=== PATIENT | female | born 1970 | race Caucasian/White ===

== ENCOUNTER 2016-11-10 21:13 | Emergency (ER) | payer OTHER ==
[2016-11-10 21:28] VITALS: RESP 16; TEMP 98.2
--- NOTE | 2016-11-10 21:34 | EDPHY ---
H & P Stated Complaint: x today - nausea, constipated, "intestines inflamed", abd pain , woozy Time Seen by Provider: 11/10/16 21:34 - Personal History LMP (Females 10-55): 1-7 Days Ago Current Tetanus/Diphtheria Vaccine: Unsure Current Tetanus Diphtheria and Acellular Pertussis (TDAP): Unsure - Medical/Surgical History Hx Asthma: No Hx Chronic Respiratory Disease: No Hx Diabetes: Yes Hx Cardiac Disease: No Hx Renal Disease: No Hx Cirrhosis: No Hx Alcoholism: No Hx HIV/AIDS: No Hx Splenectomy or Spleen Trauma: No Other PMH: pmh- DM I, hypothyroid - Social History Smoking Status: Former smoker Constitutional: Initial Vital Signs Temperature (C) 36.8 C 11/10/16 21:23 Heart Rate 87 11/10/16 21:23 Respiratory Rate 16 11/10/16 21:23 Blood Pressure 107/60 11/10/16 21:23 O2 Sat (%) 94 11/10/16 21:23 O2 Delivery Mode Room Air Allergies/Adverse Reactions: No Known Allergies Allergy (Verified 11/10/16 21:23) Home Medications: Medication Instructions Recorded Insulin Regular, Human 10/22/09 Lantus 10/22/09 Medical Decision Making ED Course/Re-evaluation: CHIEF COMPLAINT: abdominal pain HISTORY OF PRESENT ILLNESS: The patient is a 46 y/o female, with a history of diabetes type I, complaining of diffuse "crampy" abdominal pain and nausea onset today. She was seen last year for similar symptoms and her workup was largely unremarkable. Today she states, "I feel like my intestines are inflamed. " She has associated bloating and pronounced nausea without vomiting. She denies dysuria, diarrhea, or constipation. She reports she is compliant with her insulin and tracking her BGL well. Her was recently ill with similar gastrointestinal symptoms. She denies history of abdominal surgeries. REVIEW OF SYSTEMS: A 10 point review of systems was performed and is negative with the exception of the elements mentioned in the history of present illness. PHYSICAL EXAM: HR, BP, O2 Sat, RR. Temp noted General Appearance: Alert, well hydrated, appropriate, and non-toxic appearing. Head: Atraumatic without scalp tenderness or obvious injury Eyes: Pupils equal, round, reactive to light and accommodation, EOMI, no trauma , no injection. Ears: Clear bilaterally, no perforation, normal landmarks Nose: Atraumatic, no rhinorrhea, clear. Throat: There is no erythema or exudates, no lesions, normal tonsils, mucus membranes moist. Neck: Supple, nontender, no lymphadenopathy. Respiratory: No retractions, no distress, no wheezes, and no accessory muscle use. Lungs are clear to auscultation bilaterally. Cardiovascular: Regular rate and rhythm, no murmurs, rubs, or gallops. Good capillary refill all extremities. Gastrointestinal: Abdomen is soft, nontender, non-distended, no masses, no rebound, no guarding, no peritoneal signs. Musculoskeletal: Normal active ROM of all extremities, atraumatic. Neurological: Alert, appropriate, and interactive. Nonfocal neuro exam. Skin: No rashes, good turgor, no nodules on palpation. Past medical history: type 1 diabetes Past surgical history: denies Family history: noncontributory Social history: . Nonsmoker. Patient of Dr. Narvaez's private clinic. Reviewed past medical records including ED visit 12/05/15 for similar symptoms. DIFFERENTIAL DIAGNOSIS: The differential diagnosis for the patient's abdominal pain included but was not limited to ovarian cyst, pelvic inflammatory disease, ovarian torsion, urinary tract infection, ectopic , cholecystitis, and appendicitis. MEDICAL DECISION MAKING: This is a 46 y/o female with a history of type I diabetes presenting with a 1- day history of diffuse, non-localized, and "crampy" abdominal pain. Her abdominal exam is benign, which makes me less suspicious of acute process requiring imaging. Plan for IV, labs including CBC, CHEM, lipase, UA, and LFTs, and symptom management. 4mg IV Zofran, 0.5mg IV Dilaudid, 30mg IV Toradol, and 2L IV NS administered. Plan to observe and reassess for symptom improvement. 2220: Patient care signed over to Dr. Goodwin pending symptom improvement. She will be discharged home with Zofran if her symptoms improve here with outpatient follow up as needed. - Data Points Laboratory Results: 11/10/16 11/10/16 11/10/16 22:05 22:05 21:39 WBC Pending RBC Pending Hgb Pending Hct Pending MCV Pending MCH Pending MCHC Pending RDW Pending Plt Count Pending MPV Pending Neut % (Auto) Pending Lymph % (Auto) Pending [place] % (Auto) Pending Eos % (Auto) Pending Baso % (Auto) Pending Nucleat RBC Rel Count Pending Absolute Neuts (auto) Pending Absolute Lymphs (auto) Pending Absolute Monos (auto) Pending Absolute Eos (auto) Pending Absolute Basos (auto) Pending Absolute Nucleated RBC Pending Immature Gran % Pending Immature Gran # Pending Sodium Pending Potassium Pending Chloride Pending Carbon Dioxide Pending Anion Gap Pending BUN Pending Creatinine Pending Estimated GFR Pending Glucose Pending Calcium Pending Total Bilirubin Pending Conjugated Bilirubin Pending Unconjugated Bilirubin Pending AST Pending ALT Pending Alkaline Phosphatase Pending Total Protein Pending Albumin Pending Lipase Pending Beta HCG, Qual Pending Departure - Departure Disposition: Home, Routine, Self-Care Clinical Impression: Abdominal pain Qualifiers: Abdominal location: generalized Qualified Code(s): R10.84 - Generalized abdominal pain Condition: Good Instructions: Abdominal Pain (ED) Additional Instructions: Increase fluid intake as tolerated. Use Zofran as prescribed if needed for nausea. Follow up with your primary care provider for symptoms unimproved over the next 2-3 days. Return to the ED for any worsening of condition. Referrals: Kalin Narvaez MD [Primary Care Provider] - As per Instructions Report Scribed for: Kalin Narvaez Report Scribed by: Jazlyn Lynn Date of Report: 11/10/16 Time of Report: 22:05
[2016-11-10] MEDS ORDERED: ONDANSETRON 4 MG/2 ML VIAL IVP ONE (21:38)
[2016-11-10] MEDS ORDERED: KETOROLAC 30 MG/1 ML SDV IVP ONE (21:38)
[2016-11-10] MEDS ORDERED: NS 1,000 ML IV ONE ×2 (21:38)
[2016-11-10] MEDS ORDERED: HYDROmorphONE/DILAUDID 1 MG/ML SYR IVP ONE (21:38)
[2016-11-10 22:18] LABS: % IMMATURE GRANULYOCYTES 0.3 % (0.0-1.1); ABSOLUTE IMMATURE GRANULOCYTES 0.03 10^3/uL (0.00-0.10); ADD DIFF? NO; ADD MORPH? NO; ADD SCAN? NO; ATYPICAL LYMPHOCYTE FLAG 10 (0-99); FRAGMENT RBC FLAG 0 (0-99); HEMATOCRIT 44.4 % (38.0-47.0); HEMOGLOBIN 15.2 g/dL (12.6-16.3); LEFT SHIFT FLG 20 (0-99); LIPEMIA HEMOLYSIS FLAG 90 (0-99); MEAN CELL HEMOGLOBIN 32.1 pg (27.9-34.1); MEAN CELL HEMOGLOBIN CONCENTR. 34.2 g/dL (32.4-36.7); MEAN CELL VOLUME 93.7 fL (81.5-99.8); PLATELET CLUMPS FLAG 0 (0-99); PLATELET COUNT 200 10^3/uL (150-400); RED BLOOD CELL COUNT 4.74 10^6/uL (4.18-5.33); RED CELL DISTRIBUTION WIDTH 12.1 % (11.5-15.2)
[2016-11-10 22:29] LABS: ALANINE AMINOTRANSFERASE 28 IU/L (9-52); ALBUMIN 4.3 g/dL (3.5-5.0); ALKALINE PHOSPHATASE 93 IU/L (38-126); ANION GAP 12 mEq/L (8-16); ASPARTATE AMINOTRANSFERASE 21 IU/L (14-46); BILIRUBIN,TOTAL 1.4 mg/dL (0.1-1.4); BILIRUBIN-CONJUGATED 0.3 mg/dL (0.0-0.5); BILIRUBIN-UNCONJUGATED 1.1 mg/dL (0.0-1.1); CALCIUM 9.4 mg/dL (8.5-10.4); CARBON DIOXIDE 24 mEq/l (22-31); CHLORIDE 100 mEq/L (97-110); GLOMERULAR FILTRATION RATE 60; GLUCOSE 171 mg/dL (70-100); SODIUM 136 mEq/L (134-144); TOTAL PROTEIN 6.9 g/dL (6.3-8.2)
[2016-11-10] MEDS ORDERED: ONDANSETRON 4MG PREPACK#2 BTL TAKEHOME ONE (23:00)
[2016-11-10 23:12] LABS: COLOR YELLOW; LEUKOCYTE ESTERASE,URINE NEGATIVE (NEGATIVE); NITRITE,URINE NEGATIVE (NEGATIVE)
[2016-11-10 23:41] VITALS: BP 121/66; PULSE 62; O2SAT 93
== END 2016-11-10 23:40 | disposition home or self-care (01) ==
DX: R10.84 Generalized abdominal pain (principal); E10.9 Type 1 diabetes mellitus without complications; Z87.891 Personal history of nicotine dependence
CPT/HCPCS: 96374; J1170; J1885; J2405

== ENCOUNTER → 2017-01-03 | Outpatient (CLI) | payer OTHER ==
[~2017-01-03] MED LIST: BUPIVACAINE 0.25% 30 ML SDV ONE; LIDOCAINE 1% 300 MG/30 ML SDV ONE
== END ==
LOC: FIMAGING 07:42
PROVIDERS: ATTEND Radiology Diagnostic Radiology
PROC: 3E0U3GC Introduction of Other Therapeutic Substance into Joints, Percutaneous Approach (ICD-10-PCS; principal; 2017-01-03)
DX: M25.521 Pain in right elbow (principal)